=== PATIENT | male | born 1945 | race Caucasian/White ===

== ENCOUNTER 2017-05-05 13:55 | Day surgery (SDC) | payer MEDICARE ==
[~2017-05-05 13:55] MED LIST: ALBU90OI6 INH; AMLO5 PO; ASPI325 PO; ASPI81CH PO; ASPI81EC; ATOR80 PO; BECL40OI INH; CARV6.25 PO; CLOP75 PO; DIPH50 PO; DOCU100 PO; ESBRIET267 MG PO; FISH1000 PO; FLUSAL2505 IH; FLUT.05NI; Flonase 0.05% N16 GM; GEMF600; IPRA.03NI; LEVSOD100 PO; LEVSOD112; LISI5 PO; LOSA25; LOSA50 PO; METF500; METO100ER; METO100ER PO; MUCINEX SINUS-1 EAC3 PO; MULVITMIND PO; NASACORT10.8 ML; NIAC500ER; NITR.4SL; OMEP20ER; OMEP20ER PO; OXYACE5T PO; PANT40 PO; PRAV20 PO; ROSU10TA; SPIR25 PO
[2018-02-10] MEDS ORDERED: FLONASE ALLERG9.9 ML (17:33)
[2018-02-10] MEDS ORDERED: BIDEX PO (17:34)
[2018-02-10] MEDS ORDERED: NITR.6SL SL (17:34)
[2018-02-10] MEDS ORDERED: NAUZENE PO (17:35)
[2018-02-22] MEDS ORDERED: Zithromax250 MG PO (13:07)
== END 2017-05-05 15:30 | disposition home or self-care (01) ==
LOC: MHTC 13:55
PROC: 02H63KZ Insertion of Defibrillator Lead into Right Atrium, Percutaneous Approach (ICD-10-PCS; principal; 2017-05-05)
PROC: 02HL3KZ Insertion of Defibrillator Lead into Left Ventricle, Percutaneous Approach (ICD-10-PCS; principal; 2017-05-05)
PROC: 02HK3KZ Insertion of Defibrillator Lead into Right Ventricle, Percutaneous Approach (ICD-10-PCS; principal; 2017-05-05)
PROC: 0JH609Z Insertion of Cardiac Resynchronization Defibrillator Pulse Generator into Chest Subcutaneous Tissue and Fascia, Open Approach (ICD-10-PCS; principal; 2017-05-05)
DX: I25.5 Ischemic cardiomyopathy (principal); I44.7 Left bundle-branch block, unspecified; I11.9 Hypertensive heart disease without heart failure; J84.10 Pulmonary fibrosis, unspecified; E11.9 Type 2 diabetes mellitus without complications; E78.5 Hyperlipidemia, unspecified; Z79.84 Long term (current) use of oral hypoglycemic drugs; Z79.01 Long term (current) use of anticoagulants; Z79.82 Long term (current) use of aspirin; Z87.891 Personal history of nicotine dependence; Z95.1 Presence of aortocoronary bypass graft; Z95.5 Presence of coronary angioplasty implant and graft; Z79.899 Other long term (current) drug therapy; Z99.81 Dependence on supplemental oxygen
CPT/HCPCS: 33225; 33249; 36415; 71020; 80048; 85025; 85610; 93005; 93010; 93308; 99152; 99153; C1769; C1777; C1882; C1898; C1900; J0690; J1200; J1644; J2250; J2405; J3010; J7030; J7040; Q9967

== ENCOUNTER → 2017-06-19 | Outpatient (CLI) | payer MEDICARE ==
[~2017-06-19] MED LIST changes: +BIDEX PO; +DEXA4 PO; +FENTANYL1 EAC2 TOP; +FLONASE ALLERG9.9 ML; +Flovent Diskus50 MCG INH; +HYDR1TAB94 PO; +LOSA25 PO; +Miralax17 GM PO; +NAUZENE PO; +NITR.6SL SL; +OFEV150 MG PO; +ONDA8 PO; +PIOG15 PO; +Revlimid25 MG PO; +Zithromax250 MG PO
[2017-06-19 09:47] LABS: Adenovirus F 40/41 Not Detected (NOT DETECT); Astrovirus Not Detected (NOT DETECT); Campylobacter Sp Not Detected (NOT DETECT); Cryptosporidium Not Detected (NOT DETECT); Cyclospora Cayetanensis Not Detected (NOT DETECT); E. Coli O157 Not Detected (NOT DETECT); Entamoeba Histolytica Not Detected (NOT DETECT); Enteroaggregative E. coli-EAEC Not Detected (NOT DETECT); Enteropathogenic E. coli-EPEC Not Detected (NOT DETECT); Enterotoxigenic E. coli-ETEC Not Detected (NOT DETECT); Giardia Lamblia Not Detected (NOT DETECT); Norovirus GI/GII Not Detected (NOT DETECT); Plesiomonas Shigelloides Not Detected (NOT DETECT); Rotavirus A Not Detected (NOT DETECT); Salmonella Sp Not Detected (NOT DETECT); Sapovirus Not Detected (NOT DETECT); Shiga Toxin-prod E. coli-STEC Not Detected (NOT DETECT); Shigella/Enteroin E. coli-EIEC Not Detected (NOT DETECT); Vibrio Cholerae Not Detected (NOT DETECT); Vibrio Sp Not Detected (NOT DETECT); Yersinia Enterocolitica Not Detected (NOT DETECT)
== END | disposition home or self-care (01) ==
LOC: LAB EV 05:30
PROVIDERS: Physician Assistant
DX: R19.7 Diarrhea, unspecified (principal)
CPT/HCPCS: 87507

== ENCOUNTER 2018-01-29 16:43 | Inpatient (IN) | payer MEDICARE ==
[~2018-01-29] VITALS: Ht 177.8 cm; Wt 85.5 kg
[~2018-01-29 16:43] MED LIST changes: -BIDEX PO; +CARV25 PO; -CARV6.25 PO; -DEXA4 PO; -FENTANYL1 EAC2 TOP; -FLONASE ALLERG9.9 ML; -Flovent Diskus50 MCG INH; -HYDR1TAB94 PO; -LOSA25 PO; -Miralax17 GM PO; -NAUZENE PO; -NITR.6SL SL; -OFEV150 MG PO; -ONDA8 PO; -PIOG15 PO; -Revlimid25 MG PO; -Zithromax250 MG PO
[2018-01-29 19:34] LABS: BASOPHILS ABSOLUTE AUTO 0.03 K/mm3 (0.00-0.23); BASOPHILS PERCENT AUTO 0 % (0-2); EOSINOPHILS ABSOLUTE AUTO 0.16 K/mm3 (0.00-0.68); EOSINOPHILS PERCENT AUTO 2 % (0-6); Hematocrit 38.9 % (37.0-53.0); IMMATURE GRAN ABSOLUTE AUTO 0.02 K/mm3 (0.00-0.10); IMMATURE GRAN PERCENT AUTO 0 % (0-1); LYMPHOCYTES ABSOLUTE AUTO 0.74 K/mm3 (0.84-5.20); LYMPHOCYTES PERCENT AUTO 11 % (21-46); MONOCYTES ABSOLUTE AUTO 0.75 K/mm3 (0.16-1.47); MONOCYTES PERCENT AUTO 11 % (4-13); Mean Corpuscular HGB 31.9 pg (26.0-34.0); Mean Corpuscular HGB Conc 33.4 g/dL (31.5-36.5); Mean Corpuscular Volume 96 fL (80-100); Mean Platelet Volume 9.5 fL (9.1-12.4); NEUTROPHILS PERCENT AUTO 75 % (41-73); Platelet Count 142 K/mm3 (150-400); RDW Coefficient Variation 13.2 % (11.7-14.2); RDW Standard Deviation 46.7 fL (35.1-46.3); Red Blood Cell Count 4.07 M/mm3 (4.30-5.90)
[2018-01-29 19:55] LABS: Troponin I <0.015 ng/mL (0.000-0.040)
[2018-01-29 20:06] LABS: Alanine Aminotransfer (ALT/SGP 24 U/L (12-78); Albumin, Blood 3.5 g/dL (3.4-5.0); Alk Phos 136 U/L (50-136); Anion Gap 8 mmol/L (6-16); Aspartate Aminotrans (AST/SGOT 30 U/L (12-37); Bilirubin, Total 0.5 mg/dL (0.1-1.0); Blood Urea Nitrogen 32 mg/dL (8-24); CO2, Blood 33 mmol/L (21-32); Chloride, Blood 99 mmol/L (98-108); Creatinine, Blood 1.39 mg/dL (0.60-1.20); Globulin, Blood 3.4 g/dL (2.2-4.0); Glomerular Filtration Rate 53 (60-); Glucose, Blood 100 mg/dL (70-99); Potassium, Blood 4.4 mmol/L (3.5-5.5); Sodium, Blood 140 mmol/L (136-145); Total Protein, Blood 6.9 g/dL (6.4-8.2)
[2018-01-29 20:08] LABS: Calcium, Blood 14.8 mg/dL (8.5-10.1)
[2018-01-30] LABS: Bun/Creatinine Ratio 21.8 (12.0-20.0); Calcium, Blood 14.1 mg/dL (8.5-10.1); Creatinine, Blood 1.33 mg/dL (0.60-1.20); Phosphorus, Blood 3.3 mg/dL (2.5-4.9); Potassium, Blood 4.3 mmol/L (3.5-5.5)
[2018-01-30 05:21] LABS: BASOPHILS ABSOLUTE AUTO 0.04 K/mm3 (0.00-0.23); BASOPHILS PERCENT AUTO 1 % (0-2); EOSINOPHILS PERCENT AUTO 2 % (0-6); Hemoglobin 12.9 g/dL (13.5-17.5); IMMATURE GRAN ABSOLUTE AUTO 0.04 K/mm3 (0.00-0.10); IMMATURE GRAN PERCENT AUTO 1 % (0-1); LYMPHOCYTES ABSOLUTE AUTO 0.88 K/mm3 (0.84-5.20); LYMPHOCYTES PERCENT AUTO 13 % (21-46); MONOCYTES ABSOLUTE AUTO 0.94 K/mm3 (0.16-1.47); MONOCYTES PERCENT AUTO 14 % (4-13); Mean Corpuscular HGB 31.4 pg (26.0-34.0); Mean Corpuscular HGB Conc 33.1 g/dL (31.5-36.5); Mean Corpuscular Volume 95 fL (80-100); Mean Platelet Volume 10.1 fL (9.1-12.4); NEUTROPHILS ABSOLUTE AUTO 4.76 K/mm3 (1.96-9.15); NEUTROPHILS PERCENT AUTO 70 % (41-73); Platelet Count 158 K/mm3 (150-400); RDW Coefficient Variation 13.1 % (11.7-14.2); RDW Standard Deviation 45.8 fL (35.1-46.3); Red Blood Cell Count 4.11 M/mm3 (4.30-5.90); White Blood Cell Count 6.76 K/mm3 (4.00-11.30)
[2018-01-30 06:00] LABS: Albumin, Blood 3.3 g/dL (3.4-5.0); Albumin/Globulin Ratio 0.9 (0.8-1.8); Bilirubin, Total 0.6 mg/dL (0.1-1.0); Bun/Creatinine Ratio 22.4 (12.0-20.0); Calcium, Blood 13.9 mg/dL (8.5-10.1); Creatinine, Blood 1.25 mg/dL (0.60-1.20); Globulin, Blood 3.5 g/dL (2.2-4.0); Potassium, Blood 3.8 mmol/L (3.5-5.5); Total Protein, Blood 6.8 g/dL (6.4-8.2)
[2018-01-30] MEDS ORDERED: HYDR1TAB94 PO (08:56)
[2018-01-30] MEDS ORDERED: Flovent Diskus50 MCG INH (09:00)
[2018-01-30] MEDS ORDERED: PIOG15 PO (09:01)
[2018-01-30] MEDS ORDERED: OFEV150 MG PO ×2 (09:41→09:42)
[2018-01-30 11:32] LABS: Free Thyroxine 1.21 ng/dL (0.70-1.60)
[2018-01-30 11:35] LABS: Thyroid Stimulating Hormone 3.32 uIU/mL (0.360-4.800)
[2018-01-30 12:25] LABS: Albumin, Blood 3.3 g/dL (3.4-5.0); Albumin/Globulin Ratio 0.9 (0.8-1.8); Bilirubin, Total 0.5 mg/dL (0.1-1.0); Bun/Creatinine Ratio 20.6 (12.0-20.0); Creatinine, Blood 1.31 mg/dL (0.60-1.20); Globulin, Blood 3.6 g/dL (2.2-4.0); Potassium, Blood 3.9 mmol/L (3.5-5.5); Total Protein, Blood 6.9 g/dL (6.4-8.2)
[2018-01-31 05:09] LABS: Alanine Aminotransfer (ALT/SGP 20 U/L (12-78); Albumin, Blood 3.2 g/dL (3.4-5.0); Albumin/Globulin Ratio 0.9 (0.8-1.8); Alk Phos 119 U/L (50-136); Anion Gap 6 mmol/L (6-16); Aspartate Aminotrans (AST/SGOT 25 U/L (12-37); Bilirubin, Total 0.5 mg/dL (0.1-1.0); Blood Urea Nitrogen 27 mg/dL (8-24); Bun/Creatinine Ratio 24.5 (12.0-20.0); CO2, Blood 35 mmol/L (21-32); Calcium, Blood 12.1 mg/dL (8.5-10.1); Chloride, Blood 99 mmol/L (98-108); Globulin, Blood 3.5 g/dL (2.2-4.0); Glomerular Filtration Rate >60 (60-); Glucose, Blood 112 mg/dL (70-99); Potassium, Blood 3.9 mmol/L (3.5-5.5); Sodium, Blood 140 mmol/L (136-145); Total Protein, Blood 6.7 g/dL (6.4-8.2)
[2018-02-01 05:10] LABS: BASOPHILS ABSOLUTE AUTO 0.03 K/mm3 (0.00-0.23); BASOPHILS PERCENT AUTO 1 % (0-2); EOSINOPHILS PERCENT AUTO 2 % (0-6); Hematocrit 35.5 % (37.0-53.0); Hemoglobin 11.7 g/dL (13.5-17.5); IMMATURE GRAN ABSOLUTE AUTO 0.03 K/mm3 (0.00-0.10); IMMATURE GRAN PERCENT AUTO 1 % (0-1); LYMPHOCYTES ABSOLUTE AUTO 0.53 K/mm3 (0.84-5.20); LYMPHOCYTES PERCENT AUTO 9 % (21-46); MONOCYTES ABSOLUTE AUTO 0.58 K/mm3 (0.16-1.47); MONOCYTES PERCENT AUTO 9 % (4-13); Mean Corpuscular HGB 31.2 pg (26.0-34.0); Mean Corpuscular Volume 95 fL (80-100); Mean Platelet Volume 10.1 fL (9.1-12.4); NEUTROPHILS PERCENT AUTO 80 % (41-73); Platelet Count 155 K/mm3 (150-400); RDW Coefficient Variation 13.1 % (11.7-14.2); RDW Standard Deviation 45.1 fL (35.1-46.3); Red Blood Cell Count 3.75 M/mm3 (4.30-5.90); White Blood Cell Count 6.27 K/mm3 (4.00-11.30)
[2018-02-01 05:37] LABS: Alanine Aminotransfer (ALT/SGP 26 U/L (12-78); Alk Phos 106 U/L (50-136); Anion Gap 6 mmol/L (6-16); Aspartate Aminotrans (AST/SGOT 28 U/L (12-37); Bilirubin, Total 0.8 mg/dL (0.1-1.0); Blood Urea Nitrogen 30 mg/dL (8-24); Bun/Creatinine Ratio 29.7 (12.0-20.0); CO2, Blood 33 mmol/L (21-32); Calcium, Blood 10.5 mg/dL (8.5-10.1); Chloride, Blood 99 mmol/L (98-108); Creatinine, Blood 1.01 mg/dL (0.60-1.20); Globulin, Blood 3.1 g/dL (2.2-4.0); Glomerular Filtration Rate >60 (60-); Glucose, Blood 109 mg/dL (70-99); Potassium, Blood 3.7 mmol/L (3.5-5.5); Sodium, Blood 138 mmol/L (136-145); Total Protein, Blood 6.1 g/dL (6.4-8.2)
[2018-02-01 12:07] LABS: Cancer Antigen 19-9 34.5 U/mL (2.0-37.0); Carcinoembryonic Antigen 3.5 ng/mL (0.0-3.0)
[2018-02-01 12:16] LABS: Prostate Specific Antigen 0.567 ng/mL (0.000-4.000)
[2018-02-02] MEDS ORDERED: Miralax17 GM PO (15:47)
[2018-02-02] MEDS ORDERED: FENTANYL1 EAC2 TOP (15:48)
[2018-02-03 16:07] LABS: A/G RATIO 1.3 (0.7-1.7); ALPHA-1-GLOBULIN 0.3 g/dL (0.0-0.4); ALPHA-2-GLOBULIN 0.9 g/dL (0.4-1.0); BETA GLOBULIN 0.9 g/dL (0.7-1.3); GAMMA GLOBULIN 0.4 g/dL (0.4-1.8); GLOBULIN, TOTAL 2.5 g/dL (2.2-3.9); IMMUNOFIXATION RESULT, SERUM Comment: (.); IMMUNOGLOBULIN A, QN, SERUM 66 mg/dL (61-437); IMMUNOGLOBULIN G, QN, SERUM 341 mg/dL (700-1600); IMMUNOGLOBULIN M, QN, SERUM 11 mg/dL (15-143); M-SPIKE Comment: g/dL (Not Observed); PROTEIN, TOTAL, SERUM 5.5 g/dL (6.0-8.5)
[2018-02-05 07:16] LABS: 25-HYDROXY, VITAMIN D 29 ng/mL (.); 25-HYDROXY, VITAMIN D-2 <1.0 ng/mL (.); 25-HYDROXY, VITAMIN D-3 28 ng/mL (.)
== END 2018-02-02 18:58 | disposition home or self-care (01) | DRG 543 ==
LOC: ER 16:43 → MEDS 22:24
PROVIDERS: Emergency Medicine; Internal Medicine; Internal Medicine Hematology & Oncology; Student in an Organized Health Care Education/Training Program
DX: C41.9 Malignant neoplasm of bone and articular cartilage, unspecified (principal); K81.0 Acute cholecystitis; I50.42 Chronic combined systolic (congestive) and diastolic (congestive) heart failure; E83.52 Hypercalcemia; E11.9 Type 2 diabetes mellitus without complications; I11.0 Hypertensive heart disease with heart failure; I25.10 Atherosclerotic heart disease of native coronary artery without angina pectoris; E78.5 Hyperlipidemia, unspecified; Z95.810 Presence of automatic (implantable) cardiac defibrillator
CPT/HCPCS: 36415; 71046; 71250; 73030; 74177; 76705; 78306; 80048; 80053; 82232; 82306; 82378; 82947; 83690; 83970; 84100; 84153; 84439; 84443; 84484; 85025; 86301; 93005; 93010; 93283; 96361; 96374; 96375; 96376; 99285-25; A9561; C9113; J0630; J1100; J1650; J1940; J2405; J3010; J3489; J7030; Q9967

== ENCOUNTER 2018-03-19 09:57 | Observation (INO) | payer MEDICARE ==
[~2018-03-19] VITALS: Ht 175.3 cm; Wt 82.3 kg
[~2018-03-19 09:57] MED LIST changes: +BIDEX PO; -CARV25 PO; +CARV6.25 PO; +FENTANYL1 EAC2 TOP; +FLONASE ALLERG9.9 ML; +Flovent Diskus50 MCG INH; +HYDR1TAB94 PO; +Miralax17 GM PO; +NAUZENE PO; +NITR.6SL SL; +OFEV150 MG PO; +PIOG15 PO; +Zithromax250 MG PO
[2018-03-19 10:36] LABS: BASOPHILS ABSOLUTE AUTO 0.01 K/mm3 (0.00-0.23); BASOPHILS PERCENT AUTO 0 % (0-2); EOSINOPHILS ABSOLUTE AUTO 0.24 K/mm3 (0.00-0.68); EOSINOPHILS PERCENT AUTO 4 % (0-6); Hematocrit 30.7 % (37.0-53.0); Hemoglobin 9.9 g/dL (13.5-17.5); IMMATURE GRAN ABSOLUTE AUTO 0.06 K/mm3 (0.00-0.10); IMMATURE GRAN PERCENT AUTO 1 % (0-1); LYMPHOCYTES ABSOLUTE AUTO 0.42 K/mm3 (0.84-5.20); LYMPHOCYTES PERCENT AUTO 8 % (21-46); MONOCYTES ABSOLUTE AUTO 0.58 K/mm3 (0.16-1.47); MONOCYTES PERCENT AUTO 11 % (4-13); Mean Corpuscular HGB 32.2 pg (26.0-34.0); Mean Corpuscular HGB Conc 32.2 g/dL (31.5-36.5); Mean Corpuscular Volume 100 fL (80-100); Mean Platelet Volume 12.4 fL (9.1-12.4); NEUTROPHILS ABSOLUTE AUTO 4.17 K/mm3 (1.96-9.15); NEUTROPHILS PERCENT AUTO 76 % (41-73); NRBC ABSOLUTE 0.02 K/mm3 (0.00-0.02); NRBC Auto 0.4 /100 WBC (0.0-0.2); RDW Coefficient Variation 14.8 % (11.7-14.2); RDW Standard Deviation 54.6 fL (35.1-46.3); Red Blood Cell Count 3.07 M/mm3 (4.30-5.90); White Blood Cell Count 5.48 K/mm3 (4.00-11.30)
[2018-03-19 10:55] LABS: Alanine Aminotransfer (ALT/SGP 22 U/L (12-78); Albumin, Blood 2.9 g/dL (3.4-5.0); Alk Phos 133 U/L (50-136); Anion Gap 10 mmol/L (6-16); Aspartate Aminotrans (AST/SGOT 18 U/L (12-37); Bilirubin, Total 0.7 mg/dL (0.1-1.0); Blood Urea Nitrogen 18 mg/dL (8-24); Bun/Creatinine Ratio 21.6 (12.0-20.0); CO2, Blood 25 mmol/L (21-32); Calcium, Blood 7.6 mg/dL (8.5-10.1); Chloride, Blood 106 mmol/L (98-108); Creatinine, Blood 0.83 mg/dL (0.60-1.20); Globulin, Blood 2.8 g/dL (2.2-4.0); Glomerular Filtration Rate >60 (60-); Glucose, Blood 93 mg/dL (70-99); Potassium, Blood 3.9 mmol/L (3.5-5.5); Sodium, Blood 141 mmol/L (136-145); Total Protein, Blood 5.7 g/dL (6.4-8.2); Troponin I <0.015 ng/mL (0.000-0.040)
[2018-03-19 10:56] LABS: Platelet Count 43 K/mm3 (150-400)
[2018-03-19 13:43] LABS: PCO2 Arterial 42.4 mmHg (35-45); PO2 Arterial 162 mmHg (80-100); pH Blood Arterial 7.42 (7.35-7.45)
[2018-03-19] MEDS ORDERED: Revlimid25 MG PO (17:12)
[2018-03-19] MEDS ORDERED: DEXA4 PO (17:14)
[2018-03-19] MEDS ORDERED: ONDA8 PO (17:15)
[2018-03-20 05:26] LABS: BASOPHILS PERCENT AUTO 0 % (0-2); EOSINOPHILS ABSOLUTE AUTO 0.18 K/mm3 (0.00-0.68); EOSINOPHILS PERCENT AUTO 4 % (0-6); Hematocrit 29.8 % (37.0-53.0); Hemoglobin 9.5 g/dL (13.5-17.5); IMMATURE GRAN ABSOLUTE AUTO 0.04 K/mm3 (0.00-0.10); IMMATURE GRAN PERCENT AUTO 1 % (0-1); LYMPHOCYTES ABSOLUTE AUTO 0.66 K/mm3 (0.84-5.20); LYMPHOCYTES PERCENT AUTO 15 % (21-46); MONOCYTES ABSOLUTE AUTO 0.86 K/mm3 (0.16-1.47); MONOCYTES PERCENT AUTO 20 % (4-13); Mean Corpuscular HGB 31.3 pg (26.0-34.0); Mean Corpuscular HGB Conc 31.9 g/dL (31.5-36.5); Mean Corpuscular Volume 98 fL (80-100); NEUTROPHILS ABSOLUTE AUTO 2.66 K/mm3 (1.96-9.15); NEUTROPHILS PERCENT AUTO 61 % (41-73); NRBC ABSOLUTE 0.02 K/mm3 (0.00-0.02); NRBC Auto 0.5 /100 WBC (0.0-0.2); RDW Coefficient Variation 14.9 % (11.7-14.2); RDW Standard Deviation 54.2 fL (35.1-46.3); Red Blood Cell Count 3.04 M/mm3 (4.30-5.90)
[2018-03-20 05:42] LABS: Mean Platelet Volume 13.9 fL (9.1-12.4); Platelet Count 36 K/mm3 (150-400)
[2018-03-20 05:52] LABS: Anion Gap 6 mmol/L (6-16); Blood Urea Nitrogen 17 mg/dL (8-24); Bun/Creatinine Ratio 21.5 (12.0-20.0); CO2, Blood 28 mmol/L (21-32); Calcium, Blood 7.9 mg/dL (8.5-10.1); Chloride, Blood 105 mmol/L (98-108); Creatinine, Blood 0.79 mg/dL (0.60-1.20); Glomerular Filtration Rate >60 (60-); Glucose, Blood 96 mg/dL (70-99); Sodium, Blood 139 mmol/L (136-145)
[2018-03-21 11:09] LABS: BASOPHILS PERCENT AUTO 0 % (0-2); EOSINOPHILS PERCENT AUTO 6 % (0-6); Hematocrit 31.2 % (37.0-53.0); Hemoglobin 9.9 g/dL (13.5-17.5); IMMATURE GRAN ABSOLUTE AUTO 0.03 K/mm3 (0.00-0.10); IMMATURE GRAN PERCENT AUTO 1 % (0-1); LYMPHOCYTES ABSOLUTE AUTO 0.67 K/mm3 (0.84-5.20); LYMPHOCYTES PERCENT AUTO 13 % (21-46); MONOCYTES ABSOLUTE AUTO 0.89 K/mm3 (0.16-1.47); MONOCYTES PERCENT AUTO 17 % (4-13); Mean Corpuscular HGB 31.6 pg (26.0-34.0); Mean Corpuscular HGB Conc 31.7 g/dL (31.5-36.5); Mean Corpuscular Volume 100 fL (80-100); Mean Platelet Volume 12.5 fL (9.1-12.4); NEUTROPHILS ABSOLUTE AUTO 3.49 K/mm3 (1.96-9.15); NEUTROPHILS PERCENT AUTO 65 % (41-73); RDW Standard Deviation 55.3 fL (35.1-46.3); Red Blood Cell Count 3.13 M/mm3 (4.30-5.90); White Blood Cell Count 5.38 K/mm3 (4.00-11.30)
[2018-03-21 11:19] LABS: Platelet Count 30 K/mm3 (150-400)
[2018-03-21 11:20] LABS: Alanine Aminotransfer (ALT/SGP 22 U/L (12-78); Albumin, Blood 2.8 g/dL (3.4-5.0); Alk Phos 126 U/L (50-136); Anion Gap 4 mmol/L (6-16); Aspartate Aminotrans (AST/SGOT 13 U/L (12-37); Bilirubin, Total 0.6 mg/dL (0.1-1.0); Blood Urea Nitrogen 18 mg/dL (8-24); Bun/Creatinine Ratio 23.9 (12.0-20.0); CO2, Blood 31 mmol/L (21-32); Calcium, Blood 8.1 mg/dL (8.5-10.1); Chloride, Blood 102 mmol/L (98-108); Creatinine, Blood 0.75 mg/dL (0.60-1.20); Globulin, Blood 2.8 g/dL (2.2-4.0); Glomerular Filtration Rate >60 (60-); Glucose, Blood 131 mg/dL (70-99); Magnesium, Blood 2.1 mg/dL (1.6-2.4); Phosphorus, Blood 2.6 mg/dL (2.5-4.9); Potassium, Blood 4.1 mmol/L (3.5-5.5); Sodium, Blood 137 mmol/L (136-145); Total Protein, Blood 5.6 g/dL (6.4-8.2)
[2018-03-23 04:49] LABS: BASOPHILS PERCENT AUTO 0 % (0-2); EOSINOPHILS ABSOLUTE AUTO 0.01 K/mm3 (0.00-0.68); EOSINOPHILS PERCENT AUTO 0 % (0-6); Hematocrit 29.4 % (37.0-53.0); Hemoglobin 9.6 g/dL (13.5-17.5); IMMATURE GRAN ABSOLUTE AUTO 0.03 K/mm3 (0.00-0.10); IMMATURE GRAN PERCENT AUTO 1 % (0-1); LYMPHOCYTES ABSOLUTE AUTO 0.52 K/mm3 (0.84-5.20); LYMPHOCYTES PERCENT AUTO 10 % (21-46); MONOCYTES ABSOLUTE AUTO 0.68 K/mm3 (0.16-1.47); MONOCYTES PERCENT AUTO 13 % (4-13); Mean Corpuscular HGB Conc 32.7 g/dL (31.5-36.5); NEUTROPHILS PERCENT AUTO 76 % (41-73); NRBC ABSOLUTE 0.03 K/mm3 (0.00-0.02); NRBC Auto 0.6 /100 WBC (0.0-0.2); RDW Coefficient Variation 14.6 % (11.7-14.2); RDW Standard Deviation 50.7 fL (35.1-46.3); White Blood Cell Count 5.24 K/mm3 (4.00-11.30)
[2018-03-23 05:10] LABS: Anion Gap 7 mmol/L (6-16); Blood Urea Nitrogen 21 mg/dL (8-24); Bun/Creatinine Ratio 32.3 (12.0-20.0); CO2, Blood 28 mmol/L (21-32); Calcium, Blood 8.2 mg/dL (8.5-10.1); Chloride, Blood 102 mmol/L (98-108); Creatinine, Blood 0.65 mg/dL (0.60-1.20); Glomerular Filtration Rate >60 (60-); Glucose, Blood 104 mg/dL (70-99); Potassium, Blood 4.6 mmol/L (3.5-5.5); Sodium, Blood 137 mmol/L (136-145)
[2018-03-23 05:19] LABS: Mean Corpuscular Volume 95 fL (80-100)
[2018-03-23 05:21] LABS: Mean Platelet Volume 13.7 fL (9.1-12.4); Platelet Count 35 K/mm3 (150-400)
[2018-03-23] MEDS ORDERED: LOSA25 PO (11:46)
[2018-03-23] MEDS ORDERED: OFEV150 MG PO (11:47)
== END 2018-03-23 16:13 | disposition home or self-care (01) ==
LOC: ER 09:57 → MEDS 09:58 → ER 09:58 → MEDS 09:58 → UNDODEPER 16:24 → MEDS 21:43 → ENPENDDIS 03-23 12:08 → MEDS 03-23 16:13
PROVIDERS: Hospitalist; Internal Medicine; Physician Assistant
DX: R55 Syncope and collapse (principal); C90.00 Multiple myeloma not having achieved remission; J84.112 Idiopathic pulmonary fibrosis; I25.10 Atherosclerotic heart disease of native coronary artery without angina pectoris; E11.9 Type 2 diabetes mellitus without complications; E03.9 Hypothyroidism, unspecified; E78.5 Hyperlipidemia, unspecified; I11.0 Hypertensive heart disease with heart failure; I50.30 Unspecified diastolic (congestive) heart failure; E66.9 Obesity, unspecified; Z95.1 Presence of aortocoronary bypass graft; Z95.5 Presence of coronary angioplasty implant and graft; Z79.899 Other long term (current) drug therapy; Z87.891 Personal history of nicotine dependence
CPT/HCPCS: 36415; 36600; 71046; 80048; 80053; 82803; 83735; 83880; 84100; 84484; 85025; 93005; 93010; 93306; 94761; 96374; 97110; 97162; 97165; 97530; 99285-25; G0378; G8978; G8979; G8980; G8987; G8988; J2405

== ENCOUNTER 2018-06-19 12:06 | Emergency (ER) | payer MEDICARE ==
[~2018-06-19] VITALS: Ht 175.3 cm; Wt 78.0 kg
[~2018-06-19 12:06] MED LIST changes: +DEXA4 PO; +LOSA25 PO; +ONDA8 PO; +Revlimid25 MG PO
[2018-06-19] MEDS ORDERED: GABA300 PO (12:38)
[2018-06-19] MEDS ORDERED: OLAN5 PO (12:39)
[2018-06-19] MEDS ORDERED: DRON2.5 PO (13:02)
[2018-06-19] MEDS ORDERED: OXYC5 PO (13:02)
[2018-06-19] MEDS ORDERED: Fentanyl1 EACH TD (13:03)
[2018-06-19] MEDS ORDERED: Morphine Sulfat15 MG PO (13:04)
[2018-06-19] MEDS ORDERED: Carvedilol12.5 MG PO (13:04)
[2018-06-19] MEDS ORDERED: ESBRIET267 M1 PO (13:04)
[2018-06-19] MEDS ORDERED: Naprosyn500 MG PO (13:36)
[2018-06-19] MEDS ORDERED: Percocet 5-3251 EACH PO (13:36)
== END 2018-06-19 13:42 | disposition home or self-care (01) ==
LOC: ER 12:06
DX: S29.9XXA Unspecified injury of thorax, initial encounter (principal); X58.XXXA Exposure to other specified factors, initial encounter; Z79.899 Other long term (current) drug therapy; Z79.891 Long term (current) use of opiate analgesic; I11.0 Hypertensive heart disease with heart failure; I50.30 Unspecified diastolic (congestive) heart failure; E11.9 Type 2 diabetes mellitus without complications; E03.9 Hypothyroidism, unspecified; E78.5 Hyperlipidemia, unspecified; E66.9 Obesity, unspecified; Z87.891 Personal history of nicotine dependence; Z68.25 Body mass index [BMI] 25.0-25.9, adult
CPT/HCPCS: 71046; 99283-25

== ENCOUNTER 2018-07-12 20:13 | Inpatient (IN) | payer MEDICARE ==
[~2018-07-12] VITALS: Ht 180.3 cm; Wt 86.2 kg
[~2018-07-12 20:13] MED LIST changes: +Carvedilol12.5 MG PO; +DRON2.5 PO; +ESBRIET267 M1 PO; +Fentanyl1 EACH TD; +GABA300 PO; +Morphine Sulfat15 MG PO; +Naprosyn500 MG PO; +OLAN5 PO; +OXYC5 PO; +Percocet 5-3251 EACH PO
[2018-07-12 20:23] LABS: pH Blood Arterial 7.38 (7.35-7.45)
[2018-07-12 20:24] LABS: PO2 Arterial 43 mmHg (80-100)
[2018-07-12 20:30] LABS: Calcium, Ionized (POC) 1.19 mmol/L (1.10-1.46); Chloride (POC) 97 mmol/L (98-108); Creatinine (POC) 0.8 mg/dL (0.8-1.3); Glucose (ISTAT POC) 93 mg/dL (70-99); Hemoglobin (POC) 10.9 g/dL (13.5-17.5); Potassium (POC) 4.2 mmol/L (3.5-5.5); Sodium (POC) 141 mmol/L (135-148); Total CO2 (POC) 33 mmol/L (21-32)
[2018-07-12 20:38] LABS: BASOPHILS ABSOLUTE AUTO 0.03 K/mm3 (0.00-0.23); BASOPHILS PERCENT AUTO 1 % (0-2); EOSINOPHILS ABSOLUTE AUTO 0.36 K/mm3 (0.00-0.68); EOSINOPHILS PERCENT AUTO 8 % (0-6); Hematocrit 33.4 % (37.0-53.0); Hemoglobin 10.2 g/dL (13.5-17.5); IMMATURE GRAN ABSOLUTE AUTO 0.01 K/mm3 (0.00-0.10); IMMATURE GRAN PERCENT AUTO 0 % (0-1); LYMPHOCYTES PERCENT AUTO 19 % (21-46); MONOCYTES PERCENT AUTO 15 % (4-13); Mean Corpuscular HGB 32.5 pg (26.0-34.0); Mean Corpuscular HGB Conc 30.5 g/dL (31.5-36.5); Mean Corpuscular Volume 106 fL (80-100); Mean Platelet Volume 9.3 fL (9.1-12.4); NEUTROPHILS ABSOLUTE AUTO 2.63 K/mm3 (1.96-9.15); NEUTROPHILS PERCENT AUTO 57 % (41-73); Platelet Count 126 K/mm3 (150-400); RDW Coefficient Variation 15.6 % (11.7-14.2); RDW Standard Deviation 60.7 fL (35.1-46.3); Red Blood Cell Count 3.14 M/mm3 (4.30-5.90); White Blood Cell Count 4.63 K/mm3 (4.00-11.30)
[2018-07-12 21:11] LABS: Alanine Aminotransfer (ALT/SGP 21 U/L (12-78); Albumin, Blood 3.1 g/dL (3.4-5.0); Albumin/Globulin Ratio 1.1 (0.8-1.8); Alk Phos 79 U/L (50-136); Anion Gap 3 mmol/L (6-16); Aspartate Aminotrans (AST/SGOT 23 U/L (12-37); Bilirubin, Total 0.3 mg/dL (0.1-1.0); Blood Urea Nitrogen 23 mg/dL (8-24); Bun/Creatinine Ratio 29.9 (12.0-20.0); CO2, Blood 36 mmol/L (21-32); Chloride, Blood 104 mmol/L (98-108); Creatinine, Blood 0.77 mg/dL (0.60-1.20); Globulin, Blood 2.7 g/dL (2.2-4.0); Glomerular Filtration Rate >60 (60-); Glucose, Blood 91 mg/dL (70-99); Potassium, Blood 4.2 mmol/L (3.5-5.5); Sodium, Blood 143 mmol/L (136-145); Total Protein, Blood 5.8 g/dL (6.4-8.2)
[2018-07-12] MEDS ORDERED: ACYC200 PO (22:42)
[2018-07-12] MEDS ORDERED: ZOLP10 PO (22:43)
--- NOTE | 2018-07-12 23:00 | NUR ---
[place] of Care/Admission: Patient arrived to unit via stretcher, accompanied by ED nurse. Alert and oriented, but cannot remember how/why he got to the hospital. Denies pain, discomfort, SOB, or dyspnea. VSS, O2-98% on 10L/NC, patient on 8-15L/NC at baseline. Dr. Patricio came to room to evaluate patient, noted a DNR status on patient's AD, confirmed with patient that he would like to be DNR. Peripheral IV's x2 patent and intact. Denies need to void, but will collect urine specimen via urinal in bed when/if patient can void. Heart rhythm shows 100% ventricular pacing with occasional PVC's. Call light in reach, instructed to not get out of bed without assistance. Will continue to monitor for pain, safety, comfort.
[2018-07-13 03:55] LABS: Source, Urine Clean Catch
[2018-07-13 03:57] LABS: Bilirubin, Urine Neg (Neg); Blood, Urine Neg (Neg); Glucose Qualitative, Urine Neg (Neg); Ketones, Urine Neg (Neg); Leukocyte Esterase, Urine Neg (Neg); Nitrite, Urine Neg (Neg); Protein, Urine 2+ (Neg); Specific Gravity, Urine 1.015 (1.003-1.022); Urobilinogen, Urine NORM (Normal)
[2018-07-13 04:02] LABS: Hematocrit 37.4 % (37.0-53.0); Hemoglobin 11.6 g/dL (13.5-17.5); Mean Platelet Volume 9.5 fL (9.1-12.4); Platelet Count 134 K/mm3 (150-400); RDW Coefficient Variation 15.6 % (11.7-14.2); RDW Standard Deviation 59.5 fL (35.1-46.3); Red Blood Cell Count 3.62 M/mm3 (4.30-5.90)
[2018-07-13 04:02] LABS: Appearance, Urine Clear (Clear); Color, Urine Yellow (P-Yellow)
[2018-07-13 04:03] LABS: Bacteria Few /hpf; Hyaline Casts 0-2 /lpf (0-2); Red Blood Cells, Urine 0-2 /hpf (0-2); Squamous Epithelial Cells Few /hpf (Few); White Blood Cells, Urine 0-2 /hpf (0-5)
[2018-07-13 04:03] LABS: Mean Corpuscular Volume 103 fL (80-100)
[2018-07-13 04:40] LABS: Anion Gap 4 mmol/L (6-16); Blood Urea Nitrogen 23 mg/dL (8-24); Bun/Creatinine Ratio 31.1 (12.0-20.0); CO2, Blood 33 mmol/L (21-32); Calcium, Blood 8.6 mg/dL (8.5-10.1); Chloride, Blood 104 mmol/L (98-108); Creatinine, Blood 0.74 mg/dL (0.60-1.20); Glomerular Filtration Rate >60 (60-); Glucose, Blood 151 mg/dL (70-99); Potassium, Blood 5.1 mmol/L (3.5-5.5); Sodium, Blood 141 mmol/L (136-145)
[2018-07-13 04:41] LABS: Alanine Aminotransfer (ALT/SGP 24 U/L (12-78); Albumin, Blood 3.5 g/dL (3.4-5.0); Albumin/Globulin Ratio 1.2 (0.8-1.8); Alk Phos 91 U/L (50-136); Aspartate Aminotrans (AST/SGOT 21 U/L (12-37); Bilirubin, Total 0.4 mg/dL (0.1-1.0); Total Protein, Blood 6.5 g/dL (6.4-8.2)
--- NOTE | 2018-07-13 06:28 | NUR ---
Shift Summary: Slept well throughout remainder of shift, easily roused to verbal stimuli, oriented. Continues to deny pain, discomfort, SOB, or dyspnea. O2 96-98%, titrated down from 10L to 8L/NC, VSS. Tolerated PO fluids without difficulty. Peripheral IV's remain patent and intact. Voiding using urinal in bed without difficulty. Will continue to monitor until report to day shift RN.
--- NOTE | 2018-07-13 07:31 | NUR ---
ASSUMED CARE: PT RESTING QUIETLY IN BED AT THIS TIME. NO ACUTE NEEDS OR CONCERNS NOTED.
--- NOTE | 2018-07-13 10:45 | NUR ---
DEVICE INTERROGATION DONE PER ORDER FOR "SYNCOPE" EPISODE. NORMAL FUNCTIONING A/BiV ICD. NORMAL ATRIAL AND VENTRICULAR SENSING AND CAPTURE. ATRIAL LEAD IMPEDANCE 677 OHMS. RV LEAD IMPEDANCE 535OHMS. LV LEAD IMPEDANCE 850 OHMS. P WAVE 4.2 mV. R WAVE 24.5 mV. LV WAVE 11.1 mV. ATRIAL CAPTURE THRESHOLD .8V@.5ms. RV CAPTURE THRESHOLD .8V@.5ms. LC CAPTURE THRESHOLD 1.2V@.5ms. HISTOGRAMS SHOW Ap<1%. BiV PACED 95%. ATR EPISODES: 11. PMT: 5 (06/30/18). PROGRAMMED A/RV/LV AMPLITUDE TO 2:1 SAFETY MARGIN.
--- NOTE | 2018-07-13 10:50 | NUR ---
Spiritual care visit conducted. patient was lying in bed and alert when I entered the room. I introduced myself as I entered the room and patient welcomed me. I asked patient how he was doing and he immediately began to get teary eyed and said that things are not well. I listened empathically as patient shared about the of his spouse, about his medical conditions and about his support sytem. I facilitated a life review, provided grief support, explored patient's belief system, explored sources of meaning and dignity, highlighted patient's resources and coping skills, reinforced helpful attitudes and practices, quoteded inspirational Bible verses and provided prayer. Patient responded well to all interventions and stated after the prayer that he had really needed this kind of visit today. Patient displayed evidence of restored jazmine and reduced stress.
--- NOTE | 2018-07-13 18:15 | NUR ---
SHIFT SUMMARY: PT RESTING QUIETLY IN BED. ON 7-9L HIGH FLOW NC. TITRATES NEEDED FOR EXERTION. RT IN ROOM PROVIDING TREATMENT AT THIS TIME. VISITORS AT BEDSIDE OCCASIONALLY THIS SHIFT. NO FURTHER NEEDS OR CONCERNS IDENTIFIED AT THIS TIME.
--- NOTE | 2018-07-13 19:10 | NUR ---
ASSUME CARES: REPORT RECIEVED FROM OFF GOING RN SATYA. MONITOR INTACT SHOWING PACED RHYTHM. HEART RATE 100'S. LUNG SOUNDS COARSE THROUGHTOUT. CO "STUFFED UP SINUSES" REQUEST "SOMETHING TO HELP ME BREATHE. " REVIEWED FLUTTER VALVE USE WITH DEMOSTRATION. STATES "THAT WON'T DO ANY GOOD." OFFERED SALINE HOWEVER REFUSED . HOSPITALIST NOTIFIED . ORDERS NOTED. SPO2 88-89% WITH O2 AT 7L/MIN WITH HUMIDITY INCREASED TO 10L/MIN WITH SPO2 TO 93-95%. ABDOMEN SOFT WITH BOWEL SOUNDS FOUR QUADS. SKIN WARM/DRY INTACT NO EDEMA NOTED PEDAL PULSES PRESENT. CONTINUE TO MONITOR AND REPORT CHANGE IN PATIENT CONDITION.
[2018-07-14 04:02] LABS: BASOPHILS ABSOLUTE AUTO 0.02 K/mm3 (0.00-0.23); BASOPHILS PERCENT AUTO 0 % (0-2); EOSINOPHILS ABSOLUTE AUTO 0.12 K/mm3 (0.00-0.68); EOSINOPHILS PERCENT AUTO 2 % (0-6); IMMATURE GRAN ABSOLUTE AUTO 0.02 K/mm3 (0.00-0.10); IMMATURE GRAN PERCENT AUTO 0 % (0-1); LYMPHOCYTES ABSOLUTE AUTO 0.68 K/mm3 (0.84-5.20); LYMPHOCYTES PERCENT AUTO 9 % (21-46); MONOCYTES ABSOLUTE AUTO 1.04 K/mm3 (0.16-1.47); MONOCYTES PERCENT AUTO 13 % (4-13); Mean Corpuscular HGB 32.7 pg (26.0-34.0); Mean Corpuscular HGB Conc 31.3 g/dL (31.5-36.5); Mean Corpuscular Volume 105 fL (80-100); Mean Platelet Volume 9.2 fL (9.1-12.4); NEUTROPHILS ABSOLUTE AUTO 6.15 K/mm3 (1.96-9.15); NEUTROPHILS PERCENT AUTO 77 % (41-73); Platelet Count 109 K/mm3 (150-400); RDW Coefficient Variation 15.7 % (11.7-14.2); RDW Standard Deviation 60.4 fL (35.1-46.3); Red Blood Cell Count 3.06 M/mm3 (4.30-5.90); White Blood Cell Count 8.03 K/mm3 (4.00-11.30)
[2018-07-14 04:22] LABS: Anion Gap 4 mmol/L (6-16); Blood Urea Nitrogen 23 mg/dL (8-24); Bun/Creatinine Ratio 29.9 (12.0-20.0); CO2, Blood 34 mmol/L (21-32); Calcium, Blood 8.5 mg/dL (8.5-10.1); Chloride, Blood 103 mmol/L (98-108); Creatinine, Blood 0.77 mg/dL (0.60-1.20); Glomerular Filtration Rate >60 (60-); Glucose, Blood 121 mg/dL (70-99); Potassium, Blood 4.6 mmol/L (3.5-5.5); Sodium, Blood 141 mmol/L (136-145)
--- NOTE | 2018-07-14 06:15 | NUR ---
SHIFT SUMMARY; RESTS QUIETLY WHEN UNDISTURBED. MONITOR INTACT SHOWING PACED RHYTHM. OCC UNDERLYING RHYTHM BEATS. DENIES DISCOMFORT. LUNG SOUNDS COARSE WITH O2 AT 12-15L/MIN. SPO2 86-98% ABDOMEN SOFT WITH BOWEL SOUNDS FOUR QUADS. VOIDS DK JOSE URINE PER URINAL. REPOSITIONS SELF IN BED. SKIN W/D/I. NO EDEMA NOTED .CONTINUE TO MONITOR AND REPORT CHANGE IN PATIENT CONDITION
--- NOTE | 2018-07-14 07:43 | NUR ---
Received report from Lisa RN. Patient laying supine in bed with HOB at 30 degrees, alert, and able to communicate his needs. I set him up for am care and he is managing well. He is on 13L Humidified O2 and sats 100%. he denies any pain or need for intervention.He has 18ga IV in RAC and 18ga IV in LH, both dressings intacta nd WNL's and have been flushed and SL. He mostly paced in the 90'sand systolic 90's and afebrile 98.1.
--- NOTE | 2018-07-14 09:39 | NUR ---
Patient tolertaedbreakfast and PO meds well He continues to deny any current pain. He has been turmned down to 12L O2 humidified and sats upper 90%'s. He denies any current needs, he has been on phone with family.
--- NOTE | 2018-07-14 11:30 | NUR ---
Dr floyd was by to assess patient, few new orders. Patient has been resting in bed systolic 80-90 and MAP >65. He has been on 12 L O2 and sats low to mid 90%'s. He continues to deny any pain. Patient denied want shower or bed bath. No other significant changes.
--- NOTE | 2018-07-14 13:30 | NUR ---
Patient resting inbed no significant changes.
--- NOTE | 2018-07-14 14:46 | NUR ---
Spiritual care visit conducted. Because therapeutic alliance was previously established in a prior visit, patient shared openly about his life history; his regrets, his jazmine and his passion. I listened empathically, heard confession, provided pastoral senior genetic counselor and grief support and provided prayer. Patient responded well and showed signs of catharsis. Patient expressed thankfulness for the visit.
--- NOTE | 2018-07-14 16:00 | NUR ---
patient refused CBG and called dr Palacios and stated he has been in the low 100's and she said it was ok to dc insulin and cbg's. patient sitting up watching TV and denies any SOB or pain. He remains on 12 L O2 and sats mid to low 90%'s.
--- NOTE | 2018-07-14 17:30 | NUR ---
Patient resting in bed and denies any needs or pain. Wants his Marinol swithed to 1600 tomorrow as he needs it for appetite enhancement. Will communicate to Tomorrow. He reamisn on 12L O2 and sats mid 90%'s. Systolic 80-90 still, Notified.
--- NOTE | 2018-07-14 19:15 | NUR ---
ASSUME CARE: REPORT RECIEVED FROM BONNIE OFF GOING RN. MONITOR INTACT SHOWING 100% PACED RHYTHM. DENIIES DISCOMFORT. VISITING ON PHONE. LUNGS REMAIN COARSE WITH DECREASED BASES. REMAINS ON HIGH FLOW O2 AT 11L/MIN WIH SPO2 92-97%. ABDOMEN SOFT WITH BOWEL SOUNDS FOUR QUADS. VOIDS JOSE URINE PER URINALL SKIN W/D/I/. NO EDEMA NOTED. REPOSITIONS SELF IN BED . A/O OCC MOIST COUGH. CONTINUE TO MONITOR AND REPORT CHANGE IN PATIENT CONDITION.
--- NOTE | 2018-07-14 23:00 | NUR ---
REPORT CALLED TO [facility] FOR PENDING TRANSFER TO [place] [id number]
--- NOTE | 2018-07-14 23:45 | NUR ---
TRANSFER TO [phone] PER BED TOLERATES WELL
--- NOTE | 2018-07-15 04:40 | NUR ---
SHIFT SUMMARY THE PT WAS ADMITTED FOR HYPOXIC RESPIRATORY FAILURE, PULMONARY FIBROSIS, AND ENCEPHALOPATHY. DNR. REGULAR DIET. TELE-100% VENTRICULARLY PACED AT A RATE OF 95 PER SHIP SUPERINTENDENT. PACEMAKER. NO MECHANICAL PROPHYLAXIS. LOVENOX FOR DVT. PENOBSCOT. PT USES 10-15 L O2 AT HOME AND ON 11L HIGH FLOW HUMIDIFIED O2 AT THIS TIME. THE PT OFTEN PLACES O2 IN MOUTH PT IS A MOUTH BREATHER AND REPORTS HAVING A STUFFY NOSE. PT HAS HOME MEDICATION IN LOCK DRAW FOR TREATMENT OF PULMONARY FIBROSIS THAT PER REPORT COSTS APPROXIMATELY 100,000 DOLLARS PER YEAR SO IT IS VITAL THAT THIS MEDICATION IS KEPT TRACK OF. 18 G IV TO R AC AND L HAND. THE PT LIVES ALONE AND USES A SCOOTER TO GET AROUND AT BASELINE. IF THE PT DOES EXERT SELF THE O2 NEEDS TO BE INCREASED SIGNIFICANTLY PER PT AND REPORT. THE PT PRESENTED TO THE ED VIA EMS AFTER A FRIEND REPORTED THE PT TO BE UNRESPONSIVE. EMS REPORTED THAT THE PT HAD PIN POINT PUPILS AND WAS GIVEN NARCAN. INITIALLY THIS WAS NOT EFFECTIVE BUT THE PT SLOWLY AROUSED AFTER ARRIVAL IN THE ED. THE PT REPORTED HAVING TAKEN AMBIEN AND OXYCODONE AT HOME THE NIGHT BEFORE SO AN EPISODE OF UNINTENTIONAL OVERDOSE IS POSSIBLE. THE PT WAS RECENTLY STARTED ON MEDICATION FOR DEPRESSION DUE TO EXTENDED BEREAVEMENT AFTER LOSING HIS OF 56 YEARS. THE PT HAS A DAUGHTER NAMED JODIE WHO WILL SPEAK FOR HIM IN THE EVENT THAT HE IS UNABLE TO SPEAK FOR HIMSELF. THE PT WAS AN ICU TRANSFER THIS SHIFT AND IS ALERT, ORIENTED, PLEASENT, AND COOPERATIVE. THE PT HAS APPEARED TO SLEEP COMFORTABLY MOST OF THE NIGHT WITH NO APPARENT SIGNS OF ACUTE DISTRESS. ABLE TO MAKE NEEDS KNOWN AND CALL LIGHT IN REACH.
[2018-07-15 05:15] LABS: BASOPHILS ABSOLUTE AUTO 0.04 K/mm3 (0.00-0.23); BASOPHILS PERCENT AUTO 1 % (0-2); EOSINOPHILS ABSOLUTE AUTO 0.38 K/mm3 (0.00-0.68); EOSINOPHILS PERCENT AUTO 6 % (0-6); Hematocrit 31.3 % (37.0-53.0); Hemoglobin 9.7 g/dL (13.5-17.5); IMMATURE GRAN ABSOLUTE AUTO 0.02 K/mm3 (0.00-0.10); IMMATURE GRAN PERCENT AUTO 0 % (0-1); LYMPHOCYTES ABSOLUTE AUTO 0.52 K/mm3 (0.84-5.20); LYMPHOCYTES PERCENT AUTO 8 % (21-46); MONOCYTES ABSOLUTE AUTO 0.79 K/mm3 (0.16-1.47); MONOCYTES PERCENT AUTO 12 % (4-13); Mean Corpuscular HGB 31.8 pg (26.0-34.0); Mean Corpuscular Volume 103 fL (80-100); Mean Platelet Volume 9.9 fL (9.1-12.4); NEUTROPHILS ABSOLUTE AUTO 4.62 K/mm3 (1.96-9.15); NEUTROPHILS PERCENT AUTO 73 % (41-73); Platelet Count 111 K/mm3 (150-400); RDW Coefficient Variation 15.8 % (11.7-14.2); RDW Standard Deviation 59.1 fL (35.1-46.3); Red Blood Cell Count 3.05 M/mm3 (4.30-5.90); White Blood Cell Count 6.37 K/mm3 (4.00-11.30)
[2018-07-15 05:38] LABS: Anion Gap 5 mmol/L (6-16); Blood Urea Nitrogen 18 mg/dL (8-24); Bun/Creatinine Ratio 25.6 (12.0-20.0); CO2, Blood 33 mmol/L (21-32); Calcium, Blood 8.6 mg/dL (8.5-10.1); Chloride, Blood 102 mmol/L (98-108); Glomerular Filtration Rate >60 (60-); Glucose, Blood 108 mg/dL (70-99); Potassium, Blood 4.4 mmol/L (3.5-5.5); Sodium, Blood 140 mmol/L (136-145)
--- NOTE | 2018-07-15 19:22 | NUR ---
SHIFT SUMMARY. A&OX4, CGA TO BATHROOM WITH FWW, PT IS AWARE OF LIMITATIONS AND CALLS APPROPRIATLY, NO SAFETY CONCERNS. PT DENIED PAIN THIS AM, THIS AFTERNOON PT REPORTED PAIN TO [facility] PATEL, DR. RAMOS GAVE VERBAL ORDERS FOR ROXICODONE 5-10MG PO Q4P. PT REPORTED RELIEF WITH CURRENT ORDER. PT DENIES N/V. BREATHING IS AT BASELINE PER PT. NO OTHER CHANGES.
[2018-07-16 05:15] LABS: BASOPHILS ABSOLUTE AUTO 0.03 K/mm3 (0.00-0.23); BASOPHILS PERCENT AUTO 0 % (0-2); EOSINOPHILS ABSOLUTE AUTO 0.37 K/mm3 (0.00-0.68); EOSINOPHILS PERCENT AUTO 6 % (0-6); Hematocrit 32.3 % (37.0-53.0); Hemoglobin 10.1 g/dL (13.5-17.5); IMMATURE GRAN ABSOLUTE AUTO 0.03 K/mm3 (0.00-0.10); IMMATURE GRAN PERCENT AUTO 0 % (0-1); LYMPHOCYTES ABSOLUTE AUTO 0.47 K/mm3 (0.84-5.20); LYMPHOCYTES PERCENT AUTO 7 % (21-46); MONOCYTES ABSOLUTE AUTO 0.75 K/mm3 (0.16-1.47); MONOCYTES PERCENT AUTO 11 % (4-13); Mean Corpuscular HGB 32.3 pg (26.0-34.0); Mean Corpuscular HGB Conc 31.3 g/dL (31.5-36.5); Mean Corpuscular Volume 103 fL (80-100); Mean Platelet Volume 10.1 fL (9.1-12.4); NEUTROPHILS ABSOLUTE AUTO 5.02 K/mm3 (1.96-9.15); NEUTROPHILS PERCENT AUTO 76 % (41-73); Platelet Count 112 K/mm3 (150-400); RDW Coefficient Variation 15.4 % (11.7-14.2); RDW Standard Deviation 57.9 fL (35.1-46.3); Red Blood Cell Count 3.13 M/mm3 (4.30-5.90); White Blood Cell Count 6.67 K/mm3 (4.00-11.30)
[2018-07-16 05:42] LABS: Anion Gap 4 mmol/L (6-16); Blood Urea Nitrogen 15 mg/dL (8-24); Bun/Creatinine Ratio 22.4 (12.0-20.0); CO2, Blood 34 mmol/L (21-32); Calcium, Blood 8.8 mg/dL (8.5-10.1); Chloride, Blood 101 mmol/L (98-108); Creatinine, Blood 0.67 mg/dL (0.60-1.20); Glomerular Filtration Rate >60 (60-); Glucose, Blood 111 mg/dL (70-99); Potassium, Blood 4.4 mmol/L (3.5-5.5); Sodium, Blood 139 mmol/L (136-145)
--- NOTE | 2018-07-16 05:54 | NUR ---
SHIFT SUMMARY NO APPARENT ACUTE CHANGES NOTED SO FAR THIS SHIFT. ADMINISTERED LEVAQUIN PER ORDERS FOR RLL PNEUMONIA PER MD REPORT. EDUCATED PT REGARDING NEED FOR ANTIBIOTIC, PT VERBALIZED UNDERSTANDING. PT WAS WONDERING HOW LONG HE WOULD NEED TO BE ON THE ABO BEFORE HE COULD GO HOME. ADIVSED PT TO DISCUSS WITH MD IN AM. PT DID REPORT THAT HE THINKS THAT HE IS READY TO GO HOME. PT DID STATED THAT HE WAS HAVING DIFFICULTY BREATHING X1 THIS NIGHT AND REQUESTED NEB TREATMENT. RT CONTACTED. THE PT APPEARS TO SLEEP COMFORTABLY MOST OF THE NIGHT. PT APPEARS TO BE SLEEPING COMFORTABLY AT THIS TIME WITH NO APPARENT SIGNS OF ACUTE DISTRESS. ABLE TO MAKE NEEDS KNOWN AND CALL LIGHT IN REACH.
--- NOTE | 2018-07-16 18:04 | NUR ---
SHIFT SUMMARY. PT Enid ALVAREZ&OX4. CONTINUES WITH BASELINE O2 HIGH FLOW NC 7-15L. PT PARTICIPATING WITH PT/OT TODAY, TOLERATING WELL, ALTHOUGH ONLY ABLE TO AMBULATE 10FT AT A TIME, WHICH IS PT'S BASELINE. PT DID MENTION THAT HE WAS CONSIDERING HOSPICE HE IS TIRED OF FIGHTING HIS ILLNESSES AND IS AWARE THAT HIS CONDITION IS ONLY GOING TO WORSEN. CASE MANAGEMENT AWARE. DAUGHTER CAME IN TO VISIT THIS AFTERNOON. REQUESTED THAT PHYSICIAN BE ASKED TO HAVE LABS DRAWN WHILE PT IS INPATIENT THAT ARE ORDERED TO BE DRAWN NEXT WEEK FOR DR. COX OFFICE. ORDERS ARE ON FROM OF PT'S CHART. NO OTHER CHANGES.
--- NOTE | 2018-07-17 05:09 | NUR ---
72 Y/O MALE AWAKE MOST OF NIGHT WORKING ON CELL PHONE AND WATCHING TV. PT VOICED HE IS TIRED OF FIGHTING HIS PULMONARY FIBROSIS AND JUST DESIRES TO AND HAVE HOSPICE GET SET UP FOR HIM AT DISCHARTGE. pT CONTINUES TO HAVE SOB WITH SLIGHT ACTIVITY WITH O2 AT 10L/M PER NASAL CANNULA WORN. PT DENIES PAIN OR NAUSEA, NO NUMBNESS VOICED. BED LOW POSITION WITH CALL LIGHT AT SIDE. PT IS WEARING FENTANYL 25MG PATCH ON LEFT SHOULDER WITH ADEQUATE PAIN RELIEF VOICED.
--- NOTE | 2018-07-17 09:10 | NUR ---
PT PLEASANT COOP A/O. DENIES PAIN AT THIS TIME. H/R REG, NO MURMER NOTED. NO TELE. LUNGS COARSE ANDWHEEZY T/O. PULM FIBROSIS DX. PT ON 10 L HI FLOW N/C AT THIS TIME. RESP EASY, UNLABORED. BT X4 LAST BM YEST. VOIDS URINAL. BED IN LWO POSITION, CALL LITE IN REACH, CALLS APPROP. STATES PLANS TO GO HOME ON HOSPICE. NO OTHER CONCERNS AT THIS TIME.
[2018-07-17] MEDS ORDERED: FENTANYL PATCH TOP (12:22)
[2018-07-17] MEDS ORDERED: MORP20L PO (12:23)
[2018-07-17] MEDS ORDERED: LORA1 PO (12:23)
[2018-07-17] MEDS ORDERED: LEVFLO500 PO (12:23)
[2018-07-17] MEDS ORDERED: ALBU3IS INH (12:48)
--- NOTE | 2018-07-17 12:57 | NUR ---
Initial Visit: Palliative Care Consult for goals of care. Spoke with Dr Root and he reports place discharge orders for home with hospice. He reports the Pt wants to be discharged today and does not want to wait for same day admission for hospice. Pt A&O and denies pain at this time. He reports current regimen is managing his pain. Pt reports 7/7 dyspnea and 3/7 anxiety. Pt explains his anxiety is due to his SOB. Engaged in therapeutic conversation about goals of care. He reports living at home alone and his daughter Shira lives in [place] but is in [place] today. He currently is a Pt with [employer]. Educated Pt on hospice philosophy with V/U made by Pt. Educated Pt on the importance of having family or caregivers in the home for extra support. Pt reports that he is interested in having caregivers come to his home. Pt reports that he would still like to be discharged today. Educated Pt on medications that Dr Root has written a prescription for including Roxinol, Ativan, and Oxycodone. Suggested to Pt to have his daughter remain at home with him until he knows he can tolerate the new medications. Educated Pt on medication side effects and safety. Educated Pt that hospice may not be able to come into his home today and may be next week. V/U made by Pt. Pt reports no other concerns at this time. Spoke with Motorized [employer] Sergeant Omi regarding Pt visit including discussion of medications, hospice, and suggesting to contact daughter to have medications filled. Will reamin available.
--- NOTE | 2018-07-17 15:24 | NUR ---
DISCHARGE REVIEWED WITH PT. IV REMOVED INTACT. NO TELE. PT VERBALIZED UNDERSTANDING MEDS AND INSTRUCTIONS. HOSPICE TO SEE THURSDAY. JOVANY CALL WHEN DAUGHTER HERE TO TAKE HOME.
--- NOTE | 2018-07-17 16:34 | NUR ---
wheeled pt to door at 1620 daughters car
== END 2018-07-17 16:54 | disposition hospice, home (50) | DRG 189 ==
LOC: ER 20:13 → ERHOLD 20:14 → ICUW 20:14 → ERHOLD 22:05 → ICUW 22:05 → ER 22:05 → ERHOLD 22:50 → ICUW 22:50 → MEDS 22:50 → ICUW 23:55 → MEDS 07-14 23:33 → ENPENDDIS 07-17 12:00 → MEDS 07-17 16:54
PROVIDERS: Emergency Medicine; Family Medicine; ADMIT Internal Medicine
DX: J96.21 Acute and chronic respiratory failure with hypoxia (principal); J18.1 Lobar pneumonia, unspecified organism; C90.00 Multiple myeloma not having achieved remission; C79.51 Secondary malignant neoplasm of bone; J44.0 Chronic obstructive pulmonary disease with (acute) lower respiratory infection; G93.40 Encephalopathy, unspecified; J84.112 Idiopathic pulmonary fibrosis; I27.20 Pulmonary hypertension, unspecified; I25.10 Atherosclerotic heart disease of native coronary artery without angina pectoris; Z95.1 Presence of aortocoronary bypass graft; Z95.0 Presence of cardiac pacemaker; E11.9 Type 2 diabetes mellitus without complications; E03.9 Hypothyroidism, unspecified; E78.5 Hyperlipidemia, unspecified; F41.9 Anxiety disorder, unspecified; Z66 Do not resuscitate; Z99.81 Dependence on supplemental oxygen; E66.9 Obesity, unspecified; F32.9 Major depressive disorder, single episode, unspecified; G89.3 Neoplasm related pain (acute) (chronic); Z63.4 Disappearance and death of family member
CPT/HCPCS: 36415; 36600; 70450; 71045; 71046; 80047; 80048; 80053; 81001; 82803; 82947; 85014; 85025; 85027; 93005; 93010; 93283; 94640; 94644; 94760; 96372; 96374; 96375; 97110; 97116; 97162; 97166; 97530; 97535; 99285-25; G0378; J1100; J1650; J1956; J2310; J7050; Q0167